=== PATIENT | female | born 1975 | race Caucasian/White ===

== ENCOUNTER 2016-09-09 13:49 | Emergency (ER) | payer SELFPAY ==
[~2016-09-09] VITALS: Ht 165.1 cm; Wt 52.2 kg
--- NOTE | 2016-09-09 13:51 | NUR ---
CALLED TO TRIAGE, WENT TO THE RESTROOM PER ADMITTING
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
[2016-09-09] MEDS ORDERED: DIAZEPAM 5 MG/ML 2 ML DISP.SYRIN IV ONE (14:30)
[2016-09-09] MEDS ORDERED: IV NS 0.9% 1,000 ML BAG IV ONE (14:30)
[2016-09-09] MEDS ORDERED: ONDANSETRON HCL/PF 4 MG/2 ML VIAL IVP ONE (14:30)
[2016-09-09] MEDS ORDERED: IV SET PRIMARY 1 EA INFUS.SET MC ONE (14:34)
[2016-09-09] MEDS ORDERED: ONDANSETRON HCL/PF 4 MG/2 ML VIAL ONE (14:34)
[2016-09-09] MEDS ORDERED: IV NS 0.9% 0 ML ONE (14:34)
[2016-09-09] MEDS ORDERED: DIAZEPAM 5 MG/ML 2 ML DISP.SYRIN ONE (14:36)
--- NOTE | 2016-09-09 14:47 | NUR ---
PATIENT IS VERBALLY ABUSIVE STATING THAT IV INSERTED IS NOT WORKING, IN FACT THE IV IS PATENT. PATIENT REFUSED ALL THE MEDICATION ORDERED BY ER MD. ER MD MADE AWARE. DR GARCIA IS TALKING TO THE PATIENT AT . PATIENT IS RAISING HER VOICE.
--- NOTE | 2016-09-09 14:52 | NUR ---
IV removed. Catheter intact and site benign. Pressure and 4x4 applied to site. No bleeding noted.
--- NOTE | 2016-09-09 14:55 | NUR ---
Patient discharged to home in stable condition. Written and verbal after care instructions given. Patient verbalizes understanding of instruction.
== END 2016-09-09 15:00 | disposition home or self-care (01) ==
LOC: ER 13:52
DX: F10.129 Alcohol abuse with intoxication, unspecified (principal); F41.9 Anxiety disorder, unspecified; R10.84 Generalized abdominal pain; R11.2 Nausea with vomiting, unspecified; Z98.890 Other specified postprocedural states; F17.210 Nicotine dependence, cigarettes, uncomplicated
CPT/HCPCS: 71010-TC; 73610-TC; A4606; J2405; J3360; J7030; Z7610

== ENCOUNTER 2016-09-25 17:45 | Emergency (ER) | payer OTHER ==
[~2016-09-25] VITALS: Ht 162.6 cm; Wt 61.2 kg
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
--- NOTE | 2016-09-25 18:00 | NUR ---
pd at bedside talking to pt.
--- NOTE | 2016-09-25 18:09 | NUR ---
pt is medically cleared. aaox3 ambulatory w/ steady gait. pt is medically cleared. d/c in stable condition.
[2016-09-25 18:10] VITALS: BP 136/84
== END 2016-09-25 18:11 | disposition home or self-care (01) ==
LOC: ER 17:46
DX: F10.129 Alcohol abuse with intoxication, unspecified (principal); Z98.890 Other specified postprocedural states; Z91.013 Allergy to seafood; F17.210 Nicotine dependence, cigarettes, uncomplicated
CPT/HCPCS: 99283; A4606; Z7610